=== PATIENT | male | born 1970 | race Caucasian/White ===

== ENCOUNTER 2025-04-04 19:22 | Emergency (ER) | payer MEDICARE ==
[2025-04-04 20:07] VITALS: TEMP 98.4
[2025-04-04 21:38] VITALS: BP 136/96; PULSE 78; RESP 14; O2SAT 97
--- NOTE | 2025-04-04 21:59 | ERPHSYRPT ---
- History of Present Illness Patient Subjective Stated Complaint: c/o fall and dizziness Triage Nursing Assessment: patient brought to ED by with c/o fall at home from dizzines. patient started a new medication last week and has had some memory issues per his . patient unsure if he hit his head, doesn't remember passing out but woke up and was on the floor around 1900. vitals wnl, skin w/n/d, denies being dizzy at this timr, FSBS was 112 upon arrival, does not have a history of seizures. pstient doesn't appear to be in any distress at this time. Physician History: 55-year-old male history of schizophrenia, recent initiation of olanzapine approximately a week ago by his psychiatrist presenting with lightheadedness with concern of medication side effect. His reports that since starting the olanzapine he has seemed more agitated and not like himself. Patient reports having lightheadedness and a near syncopal episode today. Shortly after standing and walking to the kitchen, he felt faint; he is unsure if he truly lost consciousness or lost balance and fell to the ground. did not hit head. Denies injuries. no headache, vision change. No extremity weakness or sensory changes, no slurred speech or difficulty speaking. His was worried that this was a medication side effect and brought him in today. Notably he discontinued olanzapine 2 days ago. Allergies/Adverse Reactions: No Known Drug Allergies Allergy (Verified 04/04/25 19:59) Home Medications: Olanzapine 5 mg [zyPREXA 5MG TABLET] 5 mg PO HS 04/04/25 [History] Pregabalin 150 mg PO DAILY 04/04/25 [History] Rosuvastatin Calcium 5 mg PO DAILY 04/04/25 [History] Sildenafil Citrate 100 mg PO DAILY 04/04/25 [History] Tramadol HCl 50 mg [Ultram 50 mg] 50 mg PO DAILY 04/04/25 [History] Tramadol HCl [Tramadol HCl ER] 200 mg PO DAILY 04/04/25 [History] Hx Tetanus, Diphtheria Vaccination/Date Given: No Hx Influenza Vaccination/Date Given: No Hx Pneumococcal Vaccination/Date Given: No Travel Risk - International Travel Have you traveled outside of the country in past 3 weeks: No - Emerging Infectious Disease Are you exhibiting symptoms associated with any current EIDs: No - Past Medical History Pertinent Past Medical History: Yes Neurological History: No Pertinent History ENT History: No Pertinent History Cardiac History: High Cholesterol Respiratory History: COPD Endocrine Medical History: No Pertinent History Musculoskeletal History: Fractures GI Medical History: No Pertinent History History: No Pertinent History Psycho-Social History: Other Male Reproductive Disorders: Prostate Cancer Other Medical History: right arm fx, - Past Surgical History Past Surgical History: Yes Other Surgical History: pins in right arm - Social History Smoking Status: Current every day smoker Exposure to second hand smoke: Yes Drug Use: none - Social Determinants of Health Will the patient participate in the screening: Yes Do you worry about a steady place to live?: No Do you have any problems with any of the following?: No known problems In the past 12 months,have you had to go without utilities?: No Transportation Issues: No Has anyone in your support network made you feel unsafe?: No Have you or anyone in your house had to go w/o enough food: No - Nursing Vital Signs Nursing Vital Signs: Initial Vital Signs Temperature 98.4 F 04/04/25 19:59 Pain Scale Pain Intensity 0 - Physical Exam General Appearance: no apparent distress, alert Respiratory/Chest Exam: normal breath sounds, No chest tenderness, No respiratory distress Cardiovascular Exam: regular rate/rhythm Gastrointestinal Exam: soft, No tenderness, No distention Neurologic Exam: alert, oriented x 3, cooperative, No slurred speech, No aphasia, No dysarthria Skin Exam: normal color SpO2 Interpretation: normal SpO2: 97 Ordered Tests: Active Orders 24 hr Category Date Time Status POCT GLUCOSE Stat Lab 04/04/25 20:06 Completed Lab/Rad Data: Laboratory Results 04/04/25 Range/Units 20:06 POC Glucometer 112 H (74 to 106) mg/dL - Progress Progress Note: 04/05/25 55-year-old male history of schizophrenia, recent initiation of olanzapine approximately a week ago by his psychiatrist presenting with lightheadedness with concern of medication side effect. Possible near syncopal episode at home this evening, unclear if true loss of consciousness, though patient adamantly denies head injury, head strike. No external evidence of head injury, including no contusions, hematomas or lacerations. On initial evaluation patient and relayed that their strong preference was to be discharged, and were not interested in extensive workup, including CT imaging. Patient is alert oriented, has capacity to make decisions And able to relay understanding of risks and benefits of medical testing. His notes that she was more worried than he was and wanted him "checked out" but that both were confident that his symptoms were a side effect of the new medication, and thus he had already discontinued his olanzapine for the last 2 days. Is also on Abilify; has not noted any worsening in his schizophrenia symptoms, denies new hallucinations, or abnormal behavior. Risks and benefits conversation and shared decision making was discussed at length regarding further testing of possible presyncope versus syncope including possible CT head, troponins, electrolytes. Though EKG was reassuring showing a normal sinus rhythm of [address] elevations or depressions, low suspicion for ACS. Blood glucose testing negative for hypoglycemia. Physical exam ove rall reassuring, with normal vital signs. Patient denies chest pain, palpitations, or recurrence of presyncopal symptoms. Ultimately patient strong preference to discharge home after reassuring EKG and [id number] glucose, and did not wish to stay for further workup. Return precautions discussed at length for any recurrence of symptoms or new concerns. Patient discharged With plan to contact his primary care doctor as well as his psychiatrist first thing in the morning. - Departure Departure Disposition: Home Clinical Impression: Lightheadedness, Fall, Medication side effect Condition: Good Critical Care Time: No Referrals: ELAINA EDGE [Primary Care Provider, [facility]] - Follow up/PCP as directed Instructions: Side effects from medicines, Preventing falls in adults Additional Instructions: Thank you for coming to the Emergency Department today. You were evaluated for lightheadedness and fall at home. Given your symptoms correlate with starting the new medication, it is very possible that they are side effects from olanzapine. Do not restart the olanzapine. Call your primary care doctor as well as your psychiatrist as soon as possible to schedule follow-up and discuss new medications. If your symptoms get worse or you have new concerns, please seek medical attention again. Please follow up with your primary care doctor within 3 days. Please return to the Emergency Department if you experience: -Chest pain, shortness of breath or difficulty breathing, or fainting -Worsening fevers or chills -Worsening abdominal pain, persistent vomiting, new blood in your stool, inability to keep liquids down, or severe dehydration -Severe pain or progressively worsening pain that hinders your ability to perform daily activities -New severe or concerning symptoms
== END 2025-04-04 22:00 | disposition home or self-care (01) ==
LOC: ED 19:22
DX: R42 Dizziness and giddiness (principal); T43.595A Adverse effect of other antipsychotics and neuroleptics, initial encounter; R55 Syncope and collapse; Z79.891 Long term (current) use of opiate analgesic; Z79.899 Other long term (current) drug therapy; Z72.0 Tobacco use